=== PATIENT | female | born 1990 | race Caucasian/White ===

== ENCOUNTER → 2020-03-30 10:22 | Outpatient (CLI) | payer BC, SELFPAY | PROVIDERS: Referring Provider Dermatology; Visit Provider Dermatology | DX: L72.8 Other follicular cysts of the skin and subcutaneous tissue (principal) | CPT/HCPCS: 87070; 87077; 87186; 87205 ==

== ENCOUNTER 2024-03-14 13:18 | Emergency (ER) | payer OTHER, SELFPAY ==
[2024-03-14] VITALS (8 sets, daily range): BP systolic 111–176; BP diastolic 81–100; PULSE 84–140; RESP 17–22; TEMP 36.3–36.8; O2SAT 97–100
--- NOTE | 2024-03-14 14:06 | EDS_ITS ---
HPI History of Present Illness Chief Complaint: Chest Pain PFSH PFSH Allergy/AdvReac Type Severity Reaction Status Date / Time Penicillins (PCN) Allergy Rash Verified 03/14/24 13:21 Social History Smoking Status: Never smoker EXAM Physical Exam Const Vital Signs: 03/14/24 13:19 03/14/24 14:19 03/14/24 14:56 Temperature 97.4 F L Temperature Source Temporal Pulse Rate 140 H 100 Respiratory Rate 22 H 18 Blood Pressure 176/100 H 157/96 H Blood Pressure Mean 125 116 Pulse Ox 100 97 98 Oxygen Delivery Method Room Air Room Air Room Air 03/14/24 15:00 03/14/24 15:52 03/14/24 17:00 Temperature Temperature Source Pulse Rate 92 91 95 Respiratory Rate 19 H 17 18 Blood Pressure 142/85 H 142/89 H 151/81 H Blood Pressure Mean 104 106 104 Pulse Ox 98 100 100 Oxygen Delivery Method Room Air Room Air 03/14/24 17:58 03/14/24 18:37 Temperature 98.2 F Temperature Source Pulse Rate 84 84 Respiratory Rate 19 H 17 Blood Pressure 138/82 H 111/89 H Blood Pressure Mean 100 96 Pulse Ox 98 98 Oxygen Delivery Method Room Air MDM MDM MDM Narrative Medical decision making narrative: HISTORY OF PRESENT ILLNESS: 33-year-old female patient is a chief complaint of chest pain, heart palpitations. This began today just prior to arrival. Chest pain is pressure- like. It is not ripping or tearing. Is not exertional. It is more of a discomfort than pain per the patient. It is not burning. Denies any focal weakness or numbness. Denies bleeding diathesis. Denies vomiting or diarrhea. Denies drug use. The patient denies recent surgery in the last 4 weeks or immobilization in the last 3 days, denies previous diagnosis of DVT or PE, hemoptysis, unilateral leg swelling or malignancy with treatment the last 6 months or palliative. No estrogen use noted. Patient denies sudden onset of pain, no tearing sensation, no migratory symptoms, no new numbness, weakness or loss of sensation. Patient denies family history or personal history of Connective tissue disorders (Marfan's Syndrome, Shabnam Danlos etc) REVIEW OF SYSTEMS: Pertinent positives: Chest pain, shortness of breath Pertinent negatives: Syncope PHYSICAL EXAM: Nursing triage notes reviewed, Vital signs reviewed Constitutional: please see mdm HENT: MMM Eyes: Pupils equal round and reactive to light, Extraocular muscles intact Neck: No stridor, no JVD, full neck ROM Lungs: Clear to auscultation, No wheezing or rales. No increased work of breathing, no conversational dyspnea, no accessory muscle use, no nasal flaring. No respiratory distress noted Heart: Regular rate and rhythm, No murmurs, No rubs and No gallops, 2+ distal pulses (radial, femoral, posterior tibial) in all extremities Abdomen: Soft, there is no tenderness, rigidity, rebound or guarding, no obvious peritoneal signs, no palpable pulsatile abdominal masses, no auscultated abdominal bruit : No CVAT Extremities: No edema Neuro: No new focal neurological deficits, cranial nerves II through XII intact, 5/5 strength in all present extremities. Intact sensation to light touch in all present extremities, 2+ reflexes bilateral patella tendons. Skin: No rash or lesions noted MEDICAL DECISION MAKING: Chief Complaint: Chest pain, shortness of External records reviewed: [Reviewed prior cardiovascular notes Factors affecting care: Hypertension Social determinants of health: denies illicit drug use History obtained from others: none Consults: none [facility] Narrative: Patient was initially tachycardic, hypertensive, tachypneic. She is afebrile and saturating well on room air. I considered the following differential diagnosis: ACS, arrhythmia, anemia, electrolyte disturbance, PE, aortic dissection, pericarditis, thyroid dysfunction, drug intoxication or withdrawal I obtained a broad lab and imaging workup to further elucidate etiology of patient's complaints ALL IMAGES (IF OBTAINED) HAVE BEEN PERSONALLY REVIEWED AND INTERPRETED BY MYSELF. EKG with sinus tachycardia rate 108, normal axis, normal intervals, QTc 418, no stigmata of pericarditis, no sign of right heart strain, no sign of WPW, ARVD or Brugada syndrome D-dimer negative High-sensitivity troponin is negative, no evidence of myocardial ischemiax2 TSH, T3 and T4 neg I have personally reviewed the patient's chest x-ray. Chest x-ray is unremarkable for pulmonary edema, pneumothorax, pneumonia or focal cardiopulmonary abnormality. The synthesis of the patient's history, physical exam, labs images suggest no acute life or limb threatening etiology. On reevaluation patient's heart rate improved to 84, blood pressure was 130/82. She maintained her oxygen levels at 98%. She is appropriate discharge home with close outpatient follow-up for Holter monitor, echocardiogram or stress test as her primary doctor sees fit. The patient and/or family, caregivers express understanding. The patient and/or family, caregivers agrees with the plan. Shared decision making: I will have a discussion with the patient and or visitors regarding risk/benefits of further testing or admission. They will be made aware of of the risk/benefits inherent in this decision they will be given the opportunity to voice understanding. Total critical care time today provided was at least 0 minutes. This excludes separately billable procedures. Critical care time (if documented) is secondary to the patient having high probability of clinically significant/life threatening deterioration in the patient's condition which required my urgent intervention. Impression: 1. Chest pain 2. Shortness of breath 3. Tachycardia (resolved) Dispo: Discharge home This note was generated with [employer] dictation software. It may contain incorrect words, spelling, and punctuation that were not noted in review of the chart prior to signing. Lab Data Labs: Laboratory Results - last 24 hr 03/14/24 03/14/24 13:49 17:20 WBC 9.1 RBC 4.24 Hgb 13.5 Hct 40.1 MCV 94.6 MCH 31.8 MCHC 33.7 RDW Std Deviation 43.8 RDW Coeff of Nav 12.7 Plt Count 257 MPV 11.8 Immature Gran % (Auto) 0.300 Neut % (Auto) 63.3 Lymph % (Auto) 28.2 [place] % (Auto) 4.7 Eos % (Auto) 2.7 Baso % (Auto) 0.8 Absolute Neuts (auto) 5.8 Absolute Lymphs (auto) 2.57 Nucleated RBC % 0 D-Dimer Quant (PE/DVT) 0.27 Sodium 136 Potassium 3.4 L Chloride 106 Carbon Dioxide 22.0 Anion Gap 8 BUN 15 Creatinine 0.90 Est GFR (MDRD) Af Amer 92 Est GFR (MDRD) Non-Af 76 BUN/Creatinine Ratio 16.7 Glucose 130 H Calcium 9.3 Troponin I High Sens < 3 L 4 TSH 0.737 Free T4 0.87 Free T3 pg/dL 2.8 Radiography Diagnostic Testing: Clinical Impression(s) from Imaging Studies Chest X-Ray 03/14/24 15:20 IMPRESSION: Normal x-ray examination of the chest. Electronically Signed: Steven Lowe MD at 15:29 EST , Discharge Plan Triage Chief Complaint: Chest Pain ED Provider: Anibal Guzman Dx/Rx/DC Orders Instructions: Chest Pain [facility] Primary Care Provider: Sameer Boston Referrals: Flora Crowe MD [Med Staff - [employer]] - Activity Restrictions/Additional Instructions: Thank you for trusting us with your care today! Your labs images were negative for signs of blood clots, thyroid disease, heart attack, lung pathology, anemia, electrolyte disturbances or other life- threatening etiology. Your presentation remains unclear but is unlikely life-threatening given your reassuring vitals, unremarkable labs and images. Please take Tylenol (2 pills, 650 mg), ibuprofen (2 pills, 400 mg) every 6 hours as needed for pain and fever control. Please return to the emergency department if your symptoms change or worsen. Specifically develop worsening chest pain, shortness of breath, loss of consciousness, palpitations Please follow with your primary care physician for further outpatient evaluation and management. Print Language: Occitan Disposition Disposition: Home, Self Care Discharge Date/Time: 03/14/24 18:51
--- NOTE | 2024-03-14 14:56 | EKG12_ITS ---
Test Reason : PALP Blood Pressure : */* mmHG Vent. Rate : 108 BPM Atrial Rate : 108 BPM P-R Int : 144 ms QRS Dur : 80 ms QT Int : 312 ms P-R-T Axes : 55 66 35 degrees QTcB Int : 418 ms Sinus tachycardia Septal infarct , age undetermined Abnormal ECG Confirmed by ELPIDIO CHAVEZ, DAIJA ([id number]), fan mail editor BEAR SHETH ([id number]) on 03/16/2024 6:25:05 AM Referred By: UG/BB Confirmed By: DAIJA MAGALLANES MD
--- NOTE | 2024-03-14 15:20 | RAD_ITS ---
STUDY: X-RAY CHEST REASON FOR EXAM: Female, 33 years old. Chest pain. TECHNIQUE: Single frontal view of the chest. COMPARISON: None. FINDINGS: The lungs are clear and expanded. There is no demonstrated pleural abnormality. Normal size heart. Normal mediastinum and audie. Normal visualized pulmonary arteries. Normal visualized aortic arch and descending thoracic aorta. Normal visualized thoracic spine. Normal visualized ribs, clavicles, and shoulders. There is no demonstrated abnormality of the visualized soft tissue structures of the upper abdomen. RAD/Chest 1 View (Portable) IMPRESSION: Normal x-ray examination of the chest. Electronically Signed: Steven Lowe MD at 15:29 EST ,
[2024-03-14 15:22] LABS: Absolute Lymphocyte Count 2.57 X10^3/uL (0.83-4.51); Absolute Neutrophil Count 5.8 X10^3/uL (2.0-7.7); Basophil# 0.07 X10^3/uL; Basophil% 0.8 % (0-1); Eosinophil# 0.25 X10^3/uL; Eosinophils% 2.7 % (0-5); Hematocrit 40.1 % (37-47); Hemoglobin 13.5 g/dL (12.0-15.0); Lymphocyte # 2.57 X10^3/ul (0.83-4.51); Lymphocyte % 28.2 % (19-41); Mean Corp Hgb Conc 33.7 g/dL (32-36); Mean Corpuscular Hgb 31.8 pg (27.0-32.0); Mean Corpuscular Volume 94.6 fL (81-99); Mean Platelet Vol. 11.8 fl (6.2-12.0); Monocyte# 0.43 X10^3/uL; Monocyte% 4.7 % (0-10); NRBC Flagged by Analyzer 0 % (0-5); Neutrophil # 5.75 X10^3/uL (2.7-7.7); Neutrophil % 63.3 % (47-70); Platelet Count 257 K/mm3 (150-450); RBC Distribution Width CV 12.7 % (11.6-14.6); RBC Distribution Width SD 43.8 fl (35.1-43.9); Red Blood Count 4.24 M/mm3 (4.2-5.4); White Blood Count 9.1 K/mm3 (4.4-11.0)
[2024-03-14 15:36] LABS: D-Dimer Quantitative (DVT/PE) 0.27 FEU/ug/m (0.27-0.49)
[2024-03-14] MEDS: 0.9% Normal Saline (1000mL) 1,000 ML 999 ML IV (15:36)
[2024-03-14 15:49] LABS: Anion Gap 8 (5-15); BUN 15 mg/dL (7-18); BUN/Creat Ratio 16.7 RATIO (10-20); Calcium,Total 9.3 mg/dL (8.5-10.1); Chloride 106 mmol/L (98-107); EST Glomerular Filtration Rate 76 mL/min (>60); Est Glom Filt Rate - Afr Amer 92 mL/min (>60); Free T3 2.8 pg/mL (2.18-3.98); Glucose 130 mg/dL (74-106); Potassium 3.4 mmol/L (3.5-5.1); Sodium Level 136 mmol/L (136-145); T4 Free Direct 0.87 ng/dL (0.76-1.46); Thyroid Stim Hormone (TSH) 0.737 uIU/mL (0.358-3.740); Troponin-I HS (w/2H Reflex) < 3 pg/mL (3.0-54.0)
[2024-03-14 17:17] LABS: Reflex Troponin-HS? (from REC) Y
[2024-03-14 18:17] LABS: Troponin-I HS 4 pg/mL (3.0-54.0)
== END 2024-03-14 18:51 | disposition home or self-care (01) ==
PROVIDERS: Emergency Provider Emergency Medicine; PCP Student in an Organized Health Care Education/Training Program; Visit Provider Emergency Medicine
DX: R07.9 Chest pain, unspecified (principal); R06.02 Shortness of breath; I10 Essential (primary) hypertension
CPT/HCPCS: 71045; 80048; 84439; 84443; 84481; 84484; 85025; 85379; 93005; 96360; 99283; A4216

== ENCOUNTER → 2024-04-28 | Outpatient (CLI) | payer OTHER, SELFPAY ==
[2024-04-28 14:11] LABS: ALB/GLOB Ratio 1.5 RATIO (0.9-2.4); AST(SGOT) 16 U/L (<=31); Alanine Aminotransfer ALT/SGPT 17 U/L (<=34); Albumin, Serum 4.3 g/dL (3.5-5.0); Alkaline Phosphatase 90 U/L (35-104); Anion Gap 11 (5-15); BUN 14 mg/dL (4-19); Calcium,Total 9.6 mg/dL (7.6-11.0); Carbon Dioxide 22.4 mmol/L (21.0-32.0); Chloride 104 mmol/L (98-108); Creatinine, Serum 0.74 mg/dL (0.70-1.20); EST Glomerular Filtration Rate 109 (>60); Globulin 2.9 g/dL (2.2-4.2); Glucose 90 mg/dL (70-99); Potassium 4.4 mmol/L (3.3-5.1); Protein, Total 7.2 g/dL (5.9-8.4); Sodium Level 138 mmol/L (133-145)
== END | disposition home or self-care (01) ==
LOC: LAB 12:31
PROVIDERS: PCP Student in an Organized Health Care Education/Training Program; Referring Provider Internal Medicine Cardiovascular Disease; Visit Provider Internal Medicine Cardiovascular Disease
DX: R00.2 Palpitations (principal); R00.0 Tachycardia, unspecified
CPT/HCPCS: 36415; 80053

== ENCOUNTER → 2024-05-30 | Outpatient (CLI) | payer OTHER, SELFPAY ==
--- NOTE | 2024-05-31 12:04 | STRESSREP_ITS ---
Stress Test Report Date: 05/30/2024 Procedure: Exercise tolerance test/imaging study Indications: Chest pain Consent: Per the patient Procedure: The patient exercised on a Dustin protocol for 9 minutes achieving a peak heart rate of 160 bpm (86% predicted maximal heart rate) with a peak blood pressure 144/64 mmHg and a peak MET capacity of 10.1 METs. The baseline ECG demonstrated sinus rhythm. The peak exercise ECG no ischemic changes. There were no cardiac dysrhythmias pretest, during exercise, or recovery. The functional capacity was considered very good. There was complaint of mild chest discomfort starting stage II of the Dustin protocol. Resolved in recovery.. The examination was discontinued secondary to target heart rate being achieved. The patient was injected with 11.6 mCi of technetium 99m Cardiolite and subsequently rest SPECT Cardiolite nuclear imaging was obtained in the horizontal long, vertical long, and short axis views. Post-exercise, the patient was injected with 33.5 mCi of technetium 99m Cardiolite and subsequently stress SPECT Cardiolite nuclear imaging was obtained in the horizontal long, vertical long, and short axis views. A gated Cardiolite study at peak stress was obtained. Rest and stress SPECT Cardiolite nuclear imaging status post realignment, normalization, and attenuation correction, demonstrates the appearance of relative uniform tracer uptake and myocardial perfusion appearing within normal limits. There is end systolic thickening and brightening. The gated Cardiolite study demonstrates myocardial thickening and inward wall motion. The reported LVEF is 81%. Impression: 1. Technically adequate (percent predicted maximal heart rate greater than 85%) exercise tolerance test 2. Peak exercise ECG with no ischemic changes. Mild chest tightness reported with exercise 3. There were no cardiac dysrhythmias pretest, during exercise, or recovery 4. Rest and stress SPECT Cardiolite nuclear imaging demonstrate relative uniform tracer uptake and myocardial perfusion appearing within normal limits. 5. The gated Cardiolite study reports an LVEF of 81%. This note was generated with [employer] software. It may contain incorrect words, spelling, and punctuation that were not noted in checking the note before signing.
== END | disposition home or self-care (01) ==
LOC: CVS 06:13
PROVIDERS: PCP Student in an Organized Health Care Education/Training Program; Referring Provider Internal Medicine Cardiovascular Disease; Visit Provider Internal Medicine Cardiovascular Disease
DX: R00.2 Palpitations (principal); R07.9 Chest pain, unspecified
CPT/HCPCS: 78452; 93017; A9500; A4216

== ENCOUNTER → 2024-12-21 | Outpatient (CLI) | payer OTHER, SELFPAY ==
[2024-12-22 17:08] LABS: Immunoglobulin A 231 mg/dL (87-352)
== END | disposition home or self-care (01) ==
LOC: LAB 09:04
PROVIDERS: PCP Student in an Organized Health Care Education/Training Program; Referring Provider Student in an Organized Health Care Education/Training Program; Visit Provider Student in an Organized Health Care Education/Training Program
DX: R19.7 Diarrhea, unspecified (principal)
CPT/HCPCS: 36415; 82784; 83516; 86255

== ENCOUNTER 2025-01-26 08:19 | Day surgery (SDC) | payer OTHER, SELFPAY ==
--- NOTE | 2025-01-24 16:31 | PAT.ANE_ITS ---
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 When Was Last Pacemaker Check QUESTION #4 FULL TEXT: You/Your Family Experience fever (hyperthermia) with Anesthesia Last Oral Intake Last Oral intake: Last Oral Intake NPO since Meds taken in AM with sips of water? 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 Has anyone observed you stop No 01/24/25 15:19 breathing during sleep? STOP Results Negative 01/24/25 15:19 QUESTION #5 FULL TEXT : Do you snore loudly (louder than talking or can be heard through closed doors)? 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 Specify any problems Hx of Preganancy in last 3 No 01/24/25 15:19 Months Nurse Filling Out Transfusion [id number] 01/24/25 15:19 & Questions: Date: 01/24/25 01/24/25 15:19 Time: 15:21 01/24/25 15:19 Patient unable to answer at this time (ie. 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 Diarrhea Tachycardia Palpitations Chest pain Unspecified asthma Nontoxic multinodular goiter Irritable bowel syndrome Home Medications ?Medication ?Instructions ?Recorded ?Last Taken ?Type blood pressure test kit-large #1 ea 04/20/24 Unknown H istory metoprolol succinate 100 mg 100 mg PO QDAY #90 tabs Unknown Rx tablet,extended release 24 hr levalbuterol HCl 0.63 mg/3 mL 0.63 mg inhalation Q6H P RN PRN 01/24/25 Unknown History solution for nebulization wheezing levalbuterol tartrate 45 1 - 2 puff inhalation Q4H LA N PRN 01/24/25 Unknown History mcg/actuation aerosol inhaler wheezing spironolactone 100 mg tablet 100 mg PO DAILY 01/24/25 Unknown History Allergy/AdvReac Type Severity Reaction Status Date / Time Penicillins (PCN) Allergy Rash Verified 01/24/25 15:17 Family History Father Asthma Heart disease Thyroid disorder Parkinsons Mother Hypertension Surgical History [place] teeth removed History of partial thyroidectomy Social History Smoking Status: Never smoker alcohol intake: current details: occasional beer substance use type: does not use Audit: Pertinent Findings Pertinent Findings Stress test pertinent findings: Stress test 05/31/2024. The gated Cardiolite study reports an LVEF of 81%. Peak exercise EKG with no ischemic changes. Mild chest tightness reported with exercise. There were no cardiac dysrhythmias present, during exercise, and or recovery. Rest and stress SPECT Cardiolite nuclear imaging demonstrated relative uniform tracer uptake and myocardial perfusion appearing within normal limits. Recommendation Anesthesia Recommendation Anesthesia recommendation: OPTIMIZED for anesthesia
[2025-01-26] VITALS (8 sets, daily range): BP systolic 115–141; BP diastolic 76–90; PULSE 65–75; RESP 16; TEMP 36.3–36.7; O2SAT 100; BMI 35.9
--- NOTE | 2025-01-26 08:38 | PCM.HP.STD ---
[facility] - General General Date of Admission: 01/26/25 Date of Service: 01/26/25 HPI Narrative VALENCIA IBARRA, is a 34 F who presents [Chief Complaint: Loose stool Past medical history of hypertension, palpitations, thyroidectomy and asthma. Patient referred from primary care provider for colonoscopy. Patient having loose stools since she was in high school and was told she has IBS. Patient has 2-8 urgent and loose bowel movements per day. She has occasional formed stools. She will typically have bowel movements after eating a meal and sometimes in the middle of a meal. She denies blood in her stool. In the past she took Imodium daily but started to have heart palpitations so she discontinued. Patient feels frustrated that this affects her daily life. Patient still has her gallbladder. She denies family history of ulcerative colitis or Crohn's. No family history of colon cancer. She does not smoke or drink alcohol. Patient also with intermittent difficulty swallowing. She will have to drink a few sips of water to get the food to go down. She denies associated heartburn nausea or vomiting. [facility] Medical History (Updated 01/26/25 @ 08:[address] 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 Diarrhea Tachycardia Palpitations Chest pain Unspecified asthma Nontoxic multinodular goiter Irritable bowel syndrome Home Medications ?Medication ?Instructions ?Recorded ?Last Taken ?Type blood pressure test kit-[place] #1 ea 04/20/24 Unknown History metoprolol succinate 100 mg 100 mg PO QDAY #90 tabs 04/28/24 Unknown Rx tablet,extended release 24 hr levalbuterol HCl 0.63 mg/3 mL 0.63 mg inhalation Q6H PRN PRN 01/24/25 Unknown History solution for nebulization wheezing levalbuterol tartrate 45 1 - 2 puff inhalation Q4H PRN PRN 01/24/25 Unknown History mcg/actuation aerosol inhaler wheezing spironolactone 100 mg tablet 100 mg PO DAILY 01/24/25 Unknown History Allergy/AdvReac Type Severity Reaction Status Date / Time Penicillins (PCN) Allergy Rash Verified 01/24/25 15:17 Family History Father Asthma Heart disease Thyroid disorder Parkinsons Mother Hypertension Surgical History [place] teeth removed History of partial thyroidectomy Social History Smoking Status: Never smoker alcohol intake: current details: occasional beer substance use type: does not use ROS Constitutional Constitutional: Denies fatigue, fever(s), poor appetite, weight gain or weight loss Gastrointestinal Gastrointestinal: Denies belching, bloating, change in bowel habits, change in stool character, chewing difficulty, coffee ground emesis, constipation, cramping, diarrhea, dyspepsia, dysphagia, early satiety, excessive flatus, fecal incontinence, heartburn, hematemesis, hematochezia, hemorrhoids, loose stools, melena, nausea, odynophagia, rectal bleeding, tenesmus, vomiting or weight changes Physical Exam Const alert, oriented x3, no apparent distress and healthy appearing General Appearance: cooperative GI normal to inspection, nondistended, normoactive bowel sounds, soft to palpation, non-tender and non-distended Percussion: normal to percussion Rectal Exam: deferred Assessment & Plan Assessment/Plan (1) Diarrhea: (2) Dysphagia: PLAN: Assessment and Plan Assessment and Plan (1) Diarrhea: Status: Acute Plan: Valencia is a 34-year-old female patient with past medical history of hypertension, status post thyroidectomy and asthma here today for evaluation of diarrhea. Patient with daily loose stools since she was 14 years old. In the past she was told she has IBS. Patient has 2-8 urgent loose bowel movements per day. Patient has never had workup. I recommended stool testing for chronic infection or inflammation. Celiac testing also ordered. I recommended colonoscopy to rule out inflammatory bowel disease. Patient will also undergo EGD due to intermittent difficulty swallowing and for biopsy of the duodenum to rule out celiac disease. Patient was agreeable to proceed with testing and will follow-up to review results. In the interim, I have recommended a daily fiber supplement. If workup is unremarkable, will assume IBS and consider treatment with Xifaxan and/or colestipol. - Celiac panel - Stool for infection or inflammation - EGD - Colonoscopy - Start fiber supplement - Follow-up to review results Note: Portions of this note may have been selectively carried forward from previous documentation to ensure continuity and accuracy of the clinical record. All imported information has been reviewed and updated as necessary to reflect the current patient status, findings, and clinical decision-making for this encounter. [employer] speech recognition guest services associate software was used to create portions of this document. Sound alike and misspelled words, as well as other guest services associate errors may be contained in the documentation. Orders: Orders Celiac Disease Profile Today R19.7 - Diarrhea, unspecified ENTERIC PATHOGEN PANEL STOOL Today K58.9 - Irritable bowel syndrome, unspecified, R19.7 - Diarrhea, unspecified Ova and Parasites [id number] Today K58.9 - Irritable bowel syndrome, unspecified, R19.7 - Diarrhea, unspecified Giardia [place], Stool EIA Today R19.7 - Diarrhea, unspecified Calprotectin, Stool Today R19.7 - Diarrhea, unspecified CDIFF (PCR) Today R19.7 - Diarrhea, unspecified ]
[2025-01-26 08:48] LABS: Internal QC Validated? YES +Cl - CLEAR BKGD; Pregnancy, Urine Negative Negative
[2025-01-26] MEDS: Lactated Ringers 1,000 ML 15 ML IV (09:09)
--- NOTE | 2025-01-26 09:15 | COLBX_PTH ---
PATIENT: SHERYL IBARRA LOC: EN U#:[id number] AGE/SX: 34/F ROOM: RE01/26/[address]: Dr. Gil Doherty DO : 1990 BED: DIS: 01/26/2025 SPEC #: [id number] RECD: 01/26/25 11:49 STATUS: VELMA REQ #: [id number] ALAINA: 01/26/25 09:[address]: Gil Doherty DEPT: SURGICAL PATHOLOGY RECD BY: David Quintana ENTERED: 01/26/25 13:22 SP TYPE: COLON BX OTHR DR: Dr. Sameer Boston DO Tissues: A - Gastric mucous membrane B - Duodenum, NOS C - Esophagus, NOS D - Ileum, NOS E - COLON BIOPSY F - COLON BIOPSY Procedures: Surgery Specimen Level IV HEADER OPERATION: Colonoscopy with polypectomy and biopsy, EGD with biopsy PRE-OP DIAGNOSIS: Diarrhea, dysphagia TISSUE SUBMITTED: A- Antrum ulcer biopsy, B- Duodenum biopsy, C- Random esophagus biopsy, D- Terminal ileum biopsy, E- Random colon biopsy, F- Hepatic flexure polyp MICROSCOPIC DIAGNOSIS A. Stomach, antrum, biopsy: - Mild chronic inflammation with features of reactive gastropathy. - Negative for Helicobacter-like organisms (H&E). B. Small intestine, duodenum, biopsy: - Normal villous architecture with Agustin gland hyperplasia. - Negative for increased intraepithelial lymphocytes. C. Esophagus, random, biopsy: - Squamous mucosa with reactive changes. - Up to 3 eosinophils per high power field. D. Small intestine, terminal ileum, biopsy: - Normal villous architecture with mild acute inflammation. E. Colon, random, biopsy: - No specific pathologic change. - The histologic features of microscopic colitis are not demonstrated. F. Colon, hepatic flexure, polyp, polypectomy: - Sessile serrated lesion. - Submucosal adipose consistent with submucosal lipoma. MICROSCOPIC DESCRIPTION Slides are reviewed. GROSS DESCRIPTION A. Received in fixative is one container labeled with the patient's name and designated Antrum ulcer biopsy. The specimen consists of two irregular fragments of abernathy tissue that measure 0.2 and 0.4 cm. The specimen is totally submitted in one cassette. B. Received in fixative is one container labeled with the patient's name and designated Duodenum biopsy. The specimen consists of two irregular fragments of abernathy tissue that measure 0.3 and 0.7 cm. The specimen is totally submitted in one cassette. C. Received in fixative is one container labeled with the patient's name and designated Random esophagus biopsy. The specimen consists of multiple irregular fragments of abernathy tissue that in aggregate measure 1.3 x 0.3 x 0.1 cm. The specimen is totally submitted in one cassette. D. Received in fixative is one container labeled with the patient's name and designated Terminal ileum biopsy. The specimen consists of three irregular fragments of abernathy tissue, each measuring 0.7cm. The specimen is totally submitted in one cassette. E. Received in fixative is one container labeled with the patient's name and designated Random colon biopsy. The specimen consists of multiple irregular fragments of abernathy tissue that in aggregate measure 1.3 x 0.9 x 0.1 cm. The specimen is totally submitted in one cassette. F. Received in fixative is one container labeled with the patient's name and designated Hepatic flexure polyp. The specimen consists of a 0.7 x 0.7 x 0.3 cm abernathy-red focally fragmented polypoid tissue fragment. The specimen is bisected. Entirely submitted in 1 cassette. CA 01/26/2025 CPT:21095p2
--- NOTE | 2025-01-26 09:17 | PRE.ANES_ITS ---
ASA Classification* ASA Classification ASA Classification: 2 Assessment & Plan Anesthesia* Anesthesia Assessment Anesthesia Assessment: Discussed sedation and/or anesthesia options, risks, benefits, and alternatives with patient/parents/legal guardian/POA. Questions invited. The patient/parents/legal guardian/POA seems to understand and agrees to proceed with anesthesia plan. Reviewed the physical assessment, medical history, allergy history and patient home medications list prior to surgery/procedure/anesthetic and documented any changes. Performed airway and anesthesia risk assessments. Anesthesia Type Anesthesia Type: MAC History Source History Obtained from:: Patient and Chart Anesthesia Focused Assessment* Temperature: 98.1 F Pulse Rate: 75 Blood Pressure: 141/90 Respiratory Rate: 16 Pulse Ox: 100 Oxygen Delivery Method: Room Air Airway Assessment Mouth opens: >3 cm Mallampati Score: I Teeth Condition: Intact Neck Range of motion (ROM): Full ROM Labs Anesthesia Preop lab: CBC WBC, (4.4-11.0) 9.1 K/mm3 03/14/24, 13:49 RBC, (4.2-5.4) 4.24 M/mm3 03/14/24, 13:49 Hgb, (12.0-15.0) 13.5 g/dL 03/14/24, 13:49 Hct, (37-47) 40.1 % 03/14/24, 13:49 Plt Count, (150-450) 257 K/mm3 03/14/24, 13:49 CHEMISTRY Potassium, (3.3-5.1) 4.4 mmol/L 04/28/24, 12:33 Sodium, (133-145) 138 mmol/L 04/28/24, 12:33 BUN, (4-19) 14 mg/dL 04/28/24, 12:33 Creatinine, (0.70-1.20) 0.74 mg/dL 04/28/24, 12:33 Glucose, (70-99) 90 mg/dL 04/28/24, 12:33 TSH, (0.358-3.740) 0.737 uIU/mL 03/14/24, 13:49 COAG Urine Test Negative Negative Today, 08:30 Pre-Assessment Diagnosis/Proposed Procedure Planned Operative Procedure(s): COLONOSCOPY, EGD Anesthesia History 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 When Was Last Pacemaker Check QUESTION #4 FULL TEXT: You/Your Family Experience fever (hyperthermia) with Anesthesia Last Oral Intake Last Oral intake: Last Oral Intake NPO since 05:00 01/26/25 08:59 Meds taken in AM with sips of Yes 01/26/25 08:59 water? 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 Female Yes 01/24/25 15:19 HX of Motion Sickness Yes 01/24/25 15:19 HX of N/V After Surgery No 01/24/25 15:19 Non-Smoker Yes 01/24/25 15:19 Duration of Surgery greater No 01/24/25 15:19 than 60 minutes Number of Risk Factors 3 01/24/25 15:19 PONV Score Moderate Risk 01/24/25 15:19 Height & Weight Height & Weight: Anesthesia: Height & Weight Height 5 ft 4 in 01/26/25 08:59 Weight: 95 kg 01/26/25 08:59 Body Mass Index (BMI) 35.9 01/26/25 08:59 Respiratory Assessment Respiratory Assessment - buffing machine operator: Respiratory Tract Infection Hx - buffing machine operator Hx Respiratory Tract Infection No 01/24/25 15:19 STOP Sleep Apnea STOP Sleep Apnea - buffing machine operator: STOP Sleep Apnea - buffing machine operator Hx Hypertension Yes: CONTROLLED WITH MEDS 01/24/25 15:19 Hx Sleep Apnea No 01/24/25 15:19 CPAP BIPAP Do you snore loudly (louder No 01/24/25 15:19 than talking or can be heard Do you often feel tired/ No 01/24/25 15:19 fatigued/ sleepy during daytime? Has anyone observed you stop No 01/24/25 15:19 breathing during sleep? STOP Results Negative 01/24/25 15:19 QUESTION #5 FULL TEXT : Do you snore loudly (louder than talking or can be heard through closed doors)? 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 Specify any problems Hx of Preganancy in last 3 No 01/24/25 15:19 Months Nurse Filling Out Transfusion [email or web address] 01/24/25 15:19 & Questions: Date: 01/24/25 01/24/25 15:19 Time: 15:21 01/24/25 15:19 Patient unable to answer at this time (ie. confused, unrespo /Reproduction History /Reproductive History - buffing machine operator: /Reproductive Hx- buffing machine operator Hx Now Gestational Age (in weeks): EDC: Hx Hx Para Hx Section SAB No 03/14/24 13:19 Does the father of the baby or his family experience fever w Father of the baby Malignant Hypertension history comment Active Medications Active Medications: Current Medications Generic Name Dose Route Start Last Admin Trade Name Freq PRN Reason Stop Dose Admin Lactated Ringer's 1,000 mls @ 15 mls/hr 01/26/25 08:30 01/26/25 09:09 IV 15 mls/hr .Q48H LIU Administration PFSH Medical History Dysphagia Gastric reflux Non-smoker Hypertension History of echocardiogram History of stress test Cardiology follow-up encounter Obesity (BMI 30.0-34.9) 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 Diarrhea Tachycardia Palpitations Chest pain Unspecified asthma Nontoxic multinodular goiter Irritable bowel syndrome Home Medications ?Medication ?Instructions ?Recorded ?Last Taken ?Type blood pressure test kit-large #1 ea 04/20/24 Unknown H istory metoprolol succinate 100 mg 100 mg PO QDAY #90 tabs 01/26/25 06:00 Rx tablet,extended release 24 hr levalbuterol HCl 0.63 mg/3 mL 0.63 mg inhalation Q6H P RN PRN 01/24/25 Unknown History solution for nebulization wheezing levalbuterol tartrate 45 1 - 2 puff inhalation Q4H MS N PRN 01/24/25 Unknown History mcg/actuation aerosol inhaler wheezing spironolactone 100 mg tablet 100 mg PO DAILY 01/24/25 Unknown History Allergy/AdvReac Type Severity Reaction Status Date / Time Penicillins (PCN) Allergy Rash Verified 01/26/25 08:57 Family History Father Asthma Heart disease Thyroid disorder Parkinsons Mother Hypertension Surgical History [place] teeth removed History of partial thyroidectomy Social History Smoking Status: Never smoker alcohol intake: current details: occasional beer substance use type: does not use Review of Systems (Anesthesia) ROS Narrative System reviewed and no additional complaints, except as documented. Physical Exam Resp clear to auscultation bilaterally
--- NOTE | 2025-01-26 09:23 | PRE.ANES_ITS ---
Assessment & Plan Anesthesia* Anesthesia Assessment Anesthesia Assessment: Discussed sedation and/or anesthesia options, risks, benefits, and alternatives with patient/parents/legal guardian/POA. Questions invited. The patient/parents/legal guardian/POA seems to understand and agrees to proceed with anesthesia plan. Reviewed the physical assessment, medical history, allergy history and patient home medications list prior to surgery/procedure/anesthetic and documented any changes. Performed airway and anesthesia risk assessments. Anesthesia Focused Assessment* Temperature: 98.1 F Pulse Rate: 75 Blood Pressure: 141/90 Respiratory Rate: 16 Pulse Ox: 100 Airway Assessment Mouth opens: >3 cm Mallampati Score: II Labs Anesthesia Preop lab: CBC WBC, (4.4-11.0) 9.1 K/mm3 03/14/24, 13:49 RBC, (4.2-5.4) 4.24 M/mm3 03/14/24, 13:49 Hgb, (12.0-15.0) 13.5 g/dL 03/14/24, 13:49 Hct, (37-47) 40.1 % 03/14/24, 13:49 Plt Count, (150-450) 257 K/mm3 03/14/24, 13:49 CHEMISTRY Potassium, (3.3-5.1) 4.4 mmol/L 04/28/24, 12:33 Sodium, (133-145) 138 mmol/L 04/28/24, 12:33 BUN, (4-19) 14 mg/dL 04/28/24, 12:33 Creatinine, (0.70-1.20) 0.74 mg/dL 04/28/24, 12:33 Glucose, (70-99) 90 mg/dL 04/28/24, 12:33 TSH, (0.358-3.740) 0.737 uIU/mL 03/14/24, 13:49 COAG Urine Test Negative Negative Today, 08:30 Pre-Assessment Diagnosis/Proposed Procedure Planned Operative Procedure(s): COLONOSCOPY, EGD Anesthesia History 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 When Was Last Pacemaker Check QUESTION #4 FULL TEXT: You/Your Family Experience fever (hyperthermia) with Anesthesia Last Oral Intake Last Oral intake: Last Oral Intake NPO since 05:00 01/26/25 09:24 Meds taken in AM with sips of Yes 01/26/25 09:24 water? 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 Female Yes 01/24/25 15:19 HX of Motion Sickness Yes 01/24/25 15:19 HX of N/V After Surgery No 01/24/25 15:19 Non-Smoker Yes 01/24/25 15:19 Duration of Surgery greater No 01/24/25 15:19 than 60 minutes Number of Risk Factors 3 01/24/25 15:19 PONV Score Moderate Risk 01/24/25 15:19 Height & Weight Height & Weight: Anesthesia: Height & Weight Height 5 ft 4 in 01/26/25 08:59 Weight: 95 kg 01/26/25 08:59 Body Mass Index (BMI) 35.9 01/26/25 08:59 Respiratory Assessment Respiratory Assessment - dredge worker: Respiratory Tract Infection Hx - dredge worker Hx Respiratory Tract Infection No 01/24/25 15:19 STOP Sleep Apnea STOP Sleep Apnea - dredge worker: STOP Sleep Apnea - dredge worker Hx Hypertension Yes: CONTROLLED WITH MEDS 01/24/25 15:19 Hx Sleep Apnea No 01/24/25 15:19 CPAP BIPAP Do you snore loudly (louder No 01/24/25 15:19 than talking or can be heard Do you often feel tired/ No 01/24/25 15:19 fatigued/ sleepy during daytime? Has anyone observed you stop No 01/24/25 15:19 breathing during sleep? STOP Results Negative 01/24/25 15:19 QUESTION #5 FULL TEXT : Do you snore loudly (louder than talking or can be heard through closed doors)? 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 Specify any problems Hx of Preganancy in last 3 No 01/24/25 15:19 Months Nurse Filling Out Transfusion [email or web address] 01/24/25 15:19 & Questions: Date: 01/24/25 01/24/25 15:19 Time: 15:21 01/24/25 15:19 Patient unable to answer at this time (ie. confused, unrespo /Reproduction History /Reproductive History - dredge worker: /Reproductive Hx- dredge worker Hx Now Gestational Age (in weeks): EDC: Hx Hx Para Hx Section SAB No 03/14/24 13:19 Does the father of the baby or his family experience fever w Father of the baby Malignant Hypertension history comment Active Medications Active Medications: Current Medications Generic Name Dose Route Start Last Admin Trade Name Freq PRN Reason Stop Dose Admin Lactated Ringer's 1,000 mls @ 15 mls/hr 01/26/25 08:30 01/26/25 09:09 IV 15 mls/hr .Q48H LUI Administration PFSH Medical History Dysphagia Gastric reflux Non-smoker Hypertension History of echocardiogram History of stress test Cardiology follow-up encounter Obesity (BMI 30.0-34.9) 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 Diarrhea Tachycardia Palpitations Chest pain Unspecified asthma Nontoxic multinodular goiter Irritable bowel syndrome Home Medications ?Medication ?Instructions ?Recorded ?Last Taken ?Type blood pressure test kit-large #1 ea 04/20/24 Unknown H istory metoprolol succinate 100 mg 100 mg PO QDAY #90 tabs 01/26/25 06:00 Rx tablet,extended release 24 hr levalbuterol HCl 0.63 mg/3 mL 0.63 mg inhalation Q6H P RN PRN 01/24/25 Unknown History solution for nebulization wheezing levalbuterol tartrate 45 1 - 2 puff inhalation Q4H IL N PRN 01/24/25 Unknown History mcg/actuation aerosol inhaler wheezing spironolactone 100 mg tablet 100 mg PO DAILY 01/24/25 Unknown History Allergy/AdvReac Type Severity Reaction Status Date / Time Penicillins (PCN) Allergy Rash Verified 01/26/25 08:57 Family History Father Asthma Heart disease Thyroid disorder Parkinsons Mother Hypertension Surgical History [place] teeth removed History of partial thyroidectomy Social History Smoking Status: Never smoker alcohol intake: current details: occasional beer substance use type: does not use Review of Systems (Anesthesia) ROS Narrative System reviewed and no additional complaints, except as documented.
--- NOTE | 2025-01-26 10:10 | PCM.POST.ANE ---
Anesthesia: Postop Eval I Current Vital Signs Temperature: 97.4 F Pulse Rate: 72 Blood Pressure: 116/77 Respiratory Rate: 16 Pulse Ox: 100 Oxygen Delivery Method: Room Air Assessment Airway patent: Yes Spontaneous unlabored respirations: Yes Mental status: Awake and Calm nausea: No Vomiting: No Anesthesia Complication: No Fluid Hydration Crystalloid volume administer (ml): 600 Total IV fluid infused: 600 Progress Note Anesthesia document: Postop Eval 1 completed: Yes
--- NOTE | 2025-01-26 10:11 | OP.EGD_ITS ---
Patient Name: Valencia Upton Procedure Date: 01/26/2025 9:15 AM Date of : 1990 Age: 34 Procedure: Upper GI endoscopy Indications: Epigastric abdominal pain, Functional Dyspepsia, Dysphagia, Heartburn, Esophageal reflux Providers: Gil Doherty DO Referring MD: Sameer Boston Medicines: Monitored Anesthesia Care Patient Profile: This is a 34 year old female. Refer to note in patient chart for documentation of history and physical. Patient has symptoms of chronic abdominal cramping, dysphagia with solids, acute dyspepsia, chronic dyspepsia, chronic heartburn and chronic nausea. Complications: No immediate complications. Procedure: Pre-Anesthesia Assessment: - Prior to the procedure, a History and Physical was performed, and patient medications and allergies were reviewed. The patient is competent. The risks and benefits of the procedure and the sedation options and risks were discussed with the patient. All questions were answered and informed consent was obtained. Patient identification and proposed procedure were verified by the physician in the pre-procedure area. Mental Status Examination: alert and oriented. Airway Examination: normal oropharyngeal airway and neck mobility. Respiratory Examination: clear to auscultation. CV Examination: normal. Prophylactic Antibiotics: The patient does not require prophylactic antibiotics. Prior Anticoagulants: The patient has taken no anticoagulant or antiplatelet agents. ASA Grade Assessment: II - A patient with mild systemic disease. After reviewing the risks and benefits, the patient was deemed in satisfactory condition to undergo the procedure. The anesthesia plan was to use monitored anesthesia care (MAC). Immediately prior to administration of medications, the patient was re-assessed for adequacy to receive sedatives. The heart rate, respiratory rate, oxygen saturations, blood pressure, adequacy of pulmonary ventilation, and response to care were monitored throughout the procedure. The physical status of the patient was re-assessed after the procedure. After obtaining informed consent, the endoscope was passed under direct vision. Throughout the procedure, the patient's blood pressure, pulse, and oxygen saturations were monitored continuously. The colonoscope was introduced through the mouth, and advanced to the fourth part of the duodenum. Small bowel enteroscopy was deemed necessary. The upper GI endoscopy was accomplished without difficulty. The patient tolerated the procedure well. Scope In: 9:36:54 AM Scope Out: 9:41:11 AM Total Procedure Duration Time 0 hours 4 minutes 17 seconds Findings: Mucosal changes including ringed esophagus, feline appearance, longitudinal furrows and small-caliber esophagus were found in the esophagus. Biopsies were obtained from the proximal and distal esophagus with cold forceps for histology of suspected eosinophilic esophagitis. Verification of patient identification for the specimen was done. Estimated blood loss was minimal. One non-bleeding linear gastric ulcer with no stigmata of bleeding was found in the gastric antrum. The lesion was 6 mm in largest dimension. Biopsies were taken with a cold forceps for histology. Biopsies were taken with a cold forceps for Helicobacter pylori testing. Verification of patient identification for the specimen was done. Estimated blood loss was minimal. Patchy mild inflammation characterized by erosions and erythema was found in the entire duodenum. Biopsies were taken with a cold forceps for histology. Verification of patient identification for the specimen was done. Estimated blood loss was minimal. Impression: - Esophageal mucosal changes consistent with eosinophilic esophagitis. - Non-bleeding gastric ulcer with no stigmata of bleeding. Biopsied. - Chronic duodenitis. Biopsied. - Biopsies were taken with a cold forceps for evaluation of eosinophilic esophagitis. Recommendation: - Discharge patient to home. - Resume previous diet. - Continue present medications. - Use Prilosec (omeprazole) 20 mg PO BID x 8 weeks. - Carafate 1 g twice a day x 4 weeks Procedure Code(s): --- Professional --- 15738, Small intestinal endoscopy, enteroscopy beyond second portion of duodenum, not including ileum; with biopsy, single or multiple CPT copyright 2021 [employer]. All rights reserved. The codes documented in this report are preliminary and upon elevator repairer review may be revised to meet current compliance requirements. Gil Doherty DO 01/26/2025 10:10:54 AM This report has been signed electronically. Number of Addenda: 0 Note Initiated On: 01/26/2025 9:15 AM
--- NOTE | 2025-01-26 10:11 | OP.PROVAT_ITS ---
01/26/2025 Sameer Boston [address] [place] [address] Re : Upper GI endoscopy procedure for Valencia Upton Dear Dr. Boston This procedure was performed on January. My impressions and recommendations are as follows: Impressions : - Esophageal mucosal changes consistent with eosinophilic esophagitis. - Non-bleeding gastric ulcer with no stigmata of bleeding. Biopsied. - Chronic duodenitis. Biopsied. - Biopsies were taken with a cold forceps for evaluation of eosinophilic esophagitis. Recommendations : - Discharge patient to home. - Resume previous diet. - Continue present medications. - Use Prilosec (omeprazole) 20 mg PO BID x 8 weeks. - Carafate 1 g twice a day x 4 weeks My findings are described in the full procedure note, which is enclosed. If I can be of further assistance, please feel free to contact me at . Sincerely, Gil Doherty, 01/26/2025 10:10:54 AM This report has been signed electronically.
--- NOTE | 2025-01-26 10:23 | OP.COLON_ITS ---
Patient Name: Valencia Upton Procedure Date: 01/26/2025 9:41 AM Date of : 1990 Age: 34 Procedure: Colonoscopy Indications: Chronic diarrhea Providers: Gil Doherty DO Referring MD: Sameer Boston Medicines: Monitored Anesthesia Care Patient Profile: This is a 34 year old female. Refer to note in patient chart for documentation of history and physical. Patient has symptoms of chronic abdominal cramping, dysphagia with solids, acute dyspepsia, chronic dyspepsia, chronic heartburn and chronic nausea. Last Colonoscopy: none. The patient's first colonoscopy is today. Complications: No immediate complications. Procedure: Pre-Anesthesia Assessment: - Prior to the procedure, a History and Physical was performed, and patient medications and allergies were reviewed. The patient is competent. The risks and benefits of the procedure and the sedation options and risks were discussed with the patient. All questions were answered and informed consent was obtained. Patient identification and proposed procedure were verified by the physician in the pre-procedure area. Mental Status Examination: alert and oriented. Airway Examination: normal oropharyngeal airway and neck mobility. Respiratory Examination: clear to auscultation. CV Examination: normal. Prophylactic Antibiotics: The patient does not require prophylactic antibiotics. Prior Anticoagulants: The patient has taken no anticoagulant or antiplatelet agents. ASA Grade Assessment: II - A patient with mild systemic disease. After reviewing the risks and benefits, the patient was deemed in satisfactory condition to undergo the procedure. The anesthesia plan was to use monitored anesthesia care (MAC). Immediately prior to administration of medications, the patient was re-assessed for adequacy to receive sedatives. The heart rate, respiratory rate, oxygen saturations, blood pressure, adequacy of pulmonary ventilation, and response to care were monitored throughout the procedure. The physical status of the patient was re-assessed after the procedure. After I obtained informed consent, the scope was passed under direct vision. Throughout the procedure, the patient's blood pressure, pulse, and oxygen saturations were monitored continuously. The colonoscope was introduced through the anus and advanced to the terminal ileum. The colonoscopy was performed without difficulty. The patient tolerated the procedure well. The quality of the bowel preparation was adequate. The terminal ileum, ileocecal valve, appendiceal orifice, and rectum were photographed. Scope In: 9:42:51 AM Scope Withdrawal Time 0 hours 11 minutes 10 seconds Scope Out: 9:55:27 AM Total Procedure Duration Time 0 hours 12 minutes 36 seconds Findings: The perianal and digital rectal examinations were normal. A 9 mm polyp was found in the hepatic flexure. The polyp was sessile. The polyp was removed with a hot snare. Resection and retrieval were complete. Verification of patient identification for the specimen was done. Estimated blood loss was minimal. An area of mildly congested mucosa was found in the recto-sigmoid colon, in the sigmoid colon, in the transverse colon and in the ascending colon. Biopsies for histology were taken with a cold forceps for evaluation of microscopic colitis. Verification of patient identification for the specimen was done. Estimated blood loss was minimal. Patchy mild inflammation was found in the distal ileum and in the terminal ileum. Biopsies were taken with a cold forceps for histology. Verification of patient identification for the specimen was done. Estimated blood loss was minimal. Impression: - One 9 mm polyp at the hepatic flexure, removed with a hot snare. Resected and retrieved. - Congested mucosa in the recto-sigmoid colon, in the sigmoid colon, in the transverse colon and in the ascending colon. Biopsied. - Mild inflammation was found in the ileum secondary to ileitis. Biopsied. Recommendation: - Discharge patient to home. - Resume previous diet. - Continue present medications. - Await pathology results. - Repeat colonoscopy in 5 years for surveillance. Procedure Code(s): --- Professional --- 12038, Colonoscopy, flexible; with removal of tumor(s), polyp(s), or other lesion(s) by snare technique 52307, 59, Colonoscopy, flexible; with biopsy, single or multiple CPT copyright 2021 [employer]. All rights reserved. The codes documented in this report are preliminary and upon wiener packer review may be revised to meet current compliance requirements. Gil Doherty DO 01/26/2025 10:22:56 AM This report has been signed electronically. Number of Addenda: 0 Note Initiated On: 01/26/2025 9:41 AM
--- NOTE | 2025-01-26 10:23 | OP.PROVAT_ITS ---
01/26/2025 Sameer Boston [address] [place] [address] Re : Colonoscopy procedure for Valencia Tejadabeatriz Dear Dr. Boston This procedure was performed on January. My impressions and recommendations are as follows: Impressions : - One 9 mm polyp at the hepatic flexure, removed with a hot snare. Resected and retrieved. - Congested mucosa in the recto-sigmoid colon, in the sigmoid colon, in the transverse colon and in the ascending colon. Biopsied. - Mild inflammation was found in the ileum secondary to ileitis. Biopsied. Recommendations : - Discharge patient to home. - Resume previous diet. - Continue present medications. - Await pathology results. - Repeat colonoscopy in 5 years for surveillance. My findings are described in the full procedure note, which is enclosed. If I can be of further assistance, please feel free to contact me at . Sincerely, Gil Doherty, 01/26/2025 10:22:56 AM This report has been signed electronically.
--- NOTE | 2025-01-26 12:33 | PCM.POSTANE2 ---
Anesthesia Postop Eval I Sum Postop Eval Completion status Anesthesia document: Postop Eval 1 completed: Yes Anesthesia Postop Eval I Summary Anesthesia Postop Eval I Summary: Anesthesia Postop Eval I: Assessment Summary Airway patent Yes 01/26/25 10:11 [email or web address] Spontaneous unlabored Yes 01/26/25 10:11 [email or web address] respirations Mental status Awake,Calm 01/26/25 10:11 [email or web address] nausea No 01/26/25 10:11 [email or web address] Vomiting No 01/26/25 10:11 [email or web address] Anesthesia Postop Eval I: Fluid Summary Crystalloid volume administer 600 01/26/25 10:11 [email or web address] (ml) Colloids volume administered ( ml) Blood Product volume administered (ml) Total IV fluid infused 600 01/26/25 10:11 [email or web address] Anesthesia Postop Eval I: Summary Notes Anesthesia Complication No 01/26/25 10:11 [email or web address] Anesthesia Complication Comment: Post-operative progress note Anesthesia: Postop Eval II Evaluation Mental status: Awake Pain Level: 0 nausea: No Vomiting: No
== END 2025-01-26 10:48 | disposition home or self-care (01) ==
LOC: EN 08:20 → AC 08:21
PROVIDERS: Anesthesiology; PCP Student in an Organized Health Care Education/Training Program; Referring Provider Student in an Organized Health Care Education/Training Program; Visit Provider Internal Medicine Gastroenterology
PROC: 0DJD8ZZ Inspection of Lower Intestinal Tract, Via Natural or Artificial Opening Endoscopic (ICD-10-PCS; CPT 45378; principal; 2025-01-26 09:10)
DX: D12.3 Benign neoplasm of transverse colon (principal); I10 Essential (primary) hypertension; K29.80 Duodenitis without bleeding; K25.9 Gastric ulcer, unspecified as acute or chronic, without hemorrhage or perforation; Z79.899 Other long term (current) drug therapy; E89.0 Postprocedural hypothyroidism; J45.909 Unspecified asthma, uncomplicated; K52.9 Noninfective gastroenteritis and colitis, unspecified; K21.9 Gastro-esophageal reflux disease without esophagitis
CPT/HCPCS: 44361; 45380; 45385; 81025; 88305; J2405